=== PATIENT | female | born 1995 | race Caucasian/White ===

== ENCOUNTER 2017-09-11 16:58 | Emergency (ER) | payer BC ==
[2017-09-11] MEDS ORDERED: Ibuprofen 200 MG TAB ONE (17:50)
--- NOTE | 2017-09-11 18:52 | RAD ---
LEFT KNEE RADIOGRAPH SERIES FOUR VIEWS: INDICATION: Pain. FINDINGS: No fracture or dislocation. No joint capsular distention. IMPRESSION: No acute osseous abnormality, left knee. POS: [facility]
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
== END 2017-09-11 19:02 | disposition home or self-care (01) ==
LOC: ERS 16:58
DX: M25.562 Pain in left knee (principal); I10 Essential (primary) hypertension

== ENCOUNTER 2018-06-17 17:40 | Emergency (ER) | payer BC, OTHER ==
[~2018-06-17 17:40] MED LIST: ISOVUE-370 76%-LOCM 1 ML ONE
[2018-06-17] MEDS ORDERED: Ketorolac Tromethamine 30 MG/ML VIAL ONE (19:53)
[2018-06-17 20:18] LABS: Bilirubin Negative (Negative); Blood, Urine Large (Negative); Clarity CLOUDY (Clear); Glucose, Urine (Dipstick) Negative (Negative); Leukocyte Moderate (Negative); Nitrite Positive (Negative); Protein, Urine (Dipstick) 30 mg/dL (Neg-Trace); Specific Gravity, Urine 1.025 (1.002-1.036)
[2018-06-17 20:20] LABS: Bacteria/HPF 4+ HPF (None Seen); Pathc Cast-AUWi Flag 1.01 (0-2.49); RBC/HPF 21-50 HPF (0-3); Squamous Epithelial 0-3 HPF (0-3)
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
[2018-06-17 20:26] LABS: Mean Corpuscular HGB CONC 32.5 g/dL (32.0-36.0); Mean Corpuscular Hemoglobin 29.4 pg (27.0-31.0); Mean Corpuscular Volume 90.6 fL (78.0-98.0); Mean Platelet Volume 6.5 fL (7.4-10.4); Platelet Count 418 thou/uL (130-400); RBC Distribution Width 12.2 % (11.5-14.5); Red Blood Cell (RBC) Count 4.77 mill/uL (4.20-5.40); White Blood Cell (WBC) Count 23.5 thou/uL (4.8-10.8)
[2018-06-17 20:28] LABS: BHCG - Serum Negative (NEGATIVE); Pregs Control Background? CLEAR/WHITE (CLR/WHITE); Pregs Control Bar Appear? YES (CONTROL BAR)
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
[2018-06-17 20:40] LABS: Band 6 % (5-11); Lymphocytes 13 % (21-51); MDiff Complete? YES; Monocytes 3 % (0-10); Neutrophil 78 % (42-75)
[2018-06-17 20:43] LABS: ALT (SGPT) 28 U/L (8-55); AST (SGOT) 24 U/L (5-34); Alkaline Phosphatase 83 U/L (40-150); Anion Gap 14 mmol/L (10-20); BUN (Urea Nitrogen) 11 mg/dL (7.0-18.7); Bilirubin, Total 0.4 mg/dL (0.2-1.2); Calc. Creatinine Clearance 0 mL/min (70-130); Calcium 9.8 mg/dL (7.8-10.44); Carbon Dioxide 26 mmol/L (22-29); Chloride 104 mmol/L (98-107); Estimated GFR-MDRD 84; Globulin 3.2 g/dL (2.4-3.5); Glucose 87 mg/dL (70-105); Potassium 3.6 mmol/L (3.5-5.1); Protein, Total 7.2 g/dL (6.0-8.3); Sodium 140 mmol/L (136-145)
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
== END 2018-06-17 21:49 | disposition home or self-care (01) ==
LOC: ERS 17:40
DX: S52.92XA Unspecified fracture of left forearm, initial encounter for closed fracture (principal); S20.219A Contusion of unspecified front wall of thorax, initial encounter; S80.02XA Contusion of left knee, initial encounter; V43.52XA Car driver injured in collision with other type car in traffic accident, initial encounter
CPT/HCPCS: 29125; 71260; 74177; 80053; 81003; 81015; 84703; 85025; 96374; J1885; Q9966

== ENCOUNTER 2018-06-30 09:23 | Outpatient (CLI) | payer OTHER ==
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
== END 2018-06-30 09:24 | disposition home or self-care (01) ==
LOC: BICRAD 09:23
PROVIDERS: ATTEND Specialist
DX: Z04.1 Encounter for examination and observation following transport accident (principal); V49.40XA Driver injured in collision with unspecified motor vehicles in traffic accident, initial encounter
CPT/HCPCS: 71046